=== PATIENT | female | born 1960 | race Caucasian/White ===

== ENCOUNTER 2018-10-23 22:01 | Emergency (ER) | payer BC ==
[~2018-10-23] VITALS: Ht 165.1 cm; Wt 58.1 kg
[2018-10-23] MEDS ORDERED: SILVER SULFADIAZINE CREAM 25 GM TUBE TP ONE (23:00)
[2018-10-23] MEDS ORDERED: HYDROCODONE/APAP 10/325MG 1 EA TABLET PO ONE (23:00)
[2018-10-23] MEDS ORDERED: IBUPROFEN 600 MG TABLET PO ONE ×2 (23:00→23:12)
[2018-10-23] MEDS ORDERED: SILVER SULFADIAZINE CREAM 25 GM TUBE ONE (23:02)
--- NOTE | 2018-10-23 23:10 | NUR ---
Female motor vehicle or caravan salesperson accompanied female patient for DR. MILLS.
[2018-10-23] MEDS ORDERED: HYDROCODONE/APAP 10/325MG 1 EA TABLET ONE (23:11)
--- NOTE | 2018-10-23 23:14 | NUR ---
PT MEDICATED ORDERED.
--- NOTE | 2018-10-23 23:14 | NUR ---
SILVADINE APPLIED TO PT'S LUE AND COVERED WITH A STERILE DRSG AND WRAPPED WITH KERLEX. PT REC'D MEDICATION ORDERED.
--- NOTE | 2018-10-23 23:30 | NUR ---
Patient discharged to home in stable condition. Written and verbal after care instructions given. Patient verbalizes understanding of instruction. Pt ambulatory with a steady gait
[2018-10-23 23:32] VITALS: BP 128/79
== END 2018-10-23 23:33 | disposition home or self-care (01) ==
LOC: ER 22:03
DX: T22.212A Burn of second degree of left forearm, initial encounter (principal); Z98.890 Other specified postprocedural states; X12.XXXA Contact with other hot fluids, initial encounter; Y93.89 Activity, other specified; Y92.89 Other specified places as the place of occurrence of the external cause; Y99.8 Other external cause status